=== PATIENT | male | born 1945 | race Caucasian/White ===

== ENCOUNTER 2021-11-23 10:32 | Emergency (ER) | payer MEDICARE, OTHER, SELFPAY ==
--- NOTE | ~2021-11-23 | XR_ITS ---
XR shoulder LT min 2V DATE: 11/23/2021 11:07 INDICATION: Fall. Left shoulder injury, pain TECHNIQUE: 4 views COMPARISON: None FINDINGS: No fracture or dislocation, periosteal reaction or bone destruction or abnormal soft tissue calcification of the left shoulder. IMPRESSION: No fracture or dislocation Reviewed, dictated and finalized at location A. IMPRESSION: No fracture or dislocation
--- NOTE | ~2021-11-23 | XR_ITS ---
XR hand RT min 3V DATE: 11/23/2021 11:07 INDICATION: Fall. Right hand injury, pain TECHNIQUE: 3 views COMPARISON: None FINDINGS: No fracture or dislocation, periosteal reaction or bone destruction. No erosive change or c hondrocalcinosis. IMPRESSION: No significant abnormality Reviewed, dictated and finalized at location A. IMPRESSION: No significant abnormality
--- NOTE | ~2021-11-23 | XR_ITS ---
XR wrist RT min 3V DATE: 11/23/2021 11:07 INDICATION: Fall. Right wrist and hand injury TECHNIQUE: 4 views COMPARISON: None FINDINGS: No recent fracture or dislocation, periosteal reaction or bone destruction, erosive change or chondrocalcinosis. Mild osteoarthritis at triscaphe joint. IMPRESSION: No detected fracture or dislocation Reviewed, dictated and finalized at location A.
[2021-11-23 10:28] VITALS: BP 162/88; PULSE 85; RESP 16; O2SAT 97
--- NOTE | 2021-11-23 10:37 | PC.NURSE ---
EDP at bedside to assess pt.
--- NOTE | 2021-11-23 10:49 | ED.GENADULT ---
HPI - General Adult General Chief complaint: Unspecified Stated complaint: mult c/o, chronic pain Time Seen by Provider: 11/23/21 10:45 Course Vital Signs Vital signs: Vital Signs Pulse Rate 85 11/23/21 10:28 Respiratory Rate 16 11/23/21 10:28 Blood Pressure 162/88 H 11/23/21 10:28 Pulse Oximetry 97 11/23/21 10:28 Pulse Rate 85 11/23/21 10:28 Respiratory Rate 16 11/23/21 10:28 Blood Pressure 162/88 H 11/23/21 10:28 Pulse Oximetry 97 11/23/21 10:28 Medical Decision Making Vital Signs Vital Signs: Vital Signs Pulse Rate 85 11/23/21 10:28 Respiratory Rate 16 11/23/21 10:28 Blood Pressure 162/88 H 11/23/21 10:28 Pulse Oximetry 97 11/23/21 10:28 Pulse Rate 85 11/23/21 10:28 Respiratory Rate 16 11/23/21 10:28 Blood Pressure 162/88 H 11/23/21 10:28 Pulse Oximetry 97 11/23/21 10:28 Discharge Plan Discharge Follow-up/Referrals: PHYSICIAN NOT ON STAFF,NONSTAFF [Primary Care Provider] -
[2021-11-23] MEDS: HYDROcodone/acetaminophen (*CRX) 5-325 MG TABLET 1 TAB PO (10:55)
--- NOTE | 2021-11-23 10:58 | PC.NURSE ---
Patient reports allergy to Percocet but reports that he can take [place] without complications and has been prescribed this medication in the past and it has treated his pain effectively.
--- NOTE | 2021-11-23 11:03 | PC.NURSE ---
Patient off unit to radiology.
[2021-11-23] MEDS: KETOROLAC 30 MG/ML VIAL (*BKC) IM (11:27)
--- NOTE | 2021-11-23 11:32 | ED.GENADULT ---
HPI - General Adult General Chief complaint: Unspecified Stated complaint: mult c/o, chronic pain Time Seen by Provider: 11/23/21 10:45 History of Present Illness HPI narrative: 76-year-old male who states that he had fallen in the garden about 4 weeks ago onto his outstretched right hand, and pain right hand/wrist, he did have a large bruise in his right lower extremity, he had gone an ultrasound to rule out blood clots in the leg at the time. He is also endorsing several weeks of pain in his left shoulder, denies any trauma, and he also has chronic lower back and hip pain for which he will be seeing a specialist in a week. No weakness or numbness or tingling, no issues with voiding or defecation. No saddle anesthesia. Related Data Allergies Allergy/AdvReac Type Severity Reaction Status Date / Time acetaminophen [From Percocet] Allergy Other Verified 11/23/21 10:56 oxycodone [From Percocet] Allergy Other Verified 11/23/21 10:56 Review of Systems Review of Systems: M/S: Pain in bilateral hips, left shoulder, right hand SKIN: No rash. NEURO: [No headache or focal numbness or weakness] [facility] Past Medical History Medical History (Updated 11/23/21 @ 11:36 by Liat Silverio MD) Arthritis Social History Social History (Updated 11/23/21 @ 11:34 by Liat Silverio MD) Smoking status: Never smoker Exam Narrative: EXAMINATION OF ORGAN SYSTEMS/BODY AREAS: Constitutional: Vital signs per nursing GENERAL:[No acute distress, non-toxic appearing.] HEAD: Normal with no signs of head trauma. EYES: EOMI, conjunctiva normal ENT: Hearing grossly intact LUNGS: Nonlabored breathing. HEART: [Regular rate and rhythm] EXT: Normal range of motion SKIN: [No rashes or lesions.] NEURO: [Alert and oriented x 3. No gross focal sensory or strength deficits.] PSYCH: Normal affect Course Vital Signs Vital signs: Vital Signs Pulse Rate 85 11/23/21 10:28 Respiratory Rate 16 11/23/21 10:28 Blood Pressure 162/88 H 11/23/21 10:28 Pulse Oximetry 97 11/23/21 10:28 Pulse Rate 85 11/23/21 10:28 Respiratory Rate 16 05/29/22 10:28 Blood Pressure 162/88 H 11/23/21 10:28 Pulse Oximetry 97 11/23/21 10:28 Medical Decision Making MDM Narrative Medical decision making narrative: 76-year-old male presenting with chronic joint pains, vital signs stable, exam shows full range of motion left shoulder but with pain on extension, and tenderness around the bicep tendon, right hand has full range of motion other than chronic deficits from prior tendon surgery, with some tenderness around the wrist and base of hand without snuffbox tenderness, good strength bilateral lower extremities, low suspicion for fractures, will obtain x-rays here to confirm, these are negative, patient already has follow-up with an orthopedic surgeon, he is stable for discharge home. Vital Signs Vital Signs: Vital Signs Pulse Rate 85 11/23/21 10:28 Respiratory Rate 16 11/23/21 10:28 Blood Pressure 162/88 H 11/23/21 10:28 Pulse Oximetry 97 11/23/21 10:28 Pulse Rate 85 11/23/21 10:28 Respiratory Rate 16 11/23/21 10:28 Blood Pressure 162/88 H 11/23/21 10:28 Pulse Oximetry 97 11/23/21 10:28 Discharge Plan Discharge Clinical Impression: Pain in wrist, Left shoulder pain Patient Disposition: Home, Self-Care Condition: Stable Instructions: Antibiotic Form, Tendinitis (ED), Arthritis (ED) Additional Instructions: You have no fractures seen on xray today. You can take over the counter tylenol/acetaminophen or ibuprofen/advil/motrin as needed for the pain; please follow up with your primary care doctor. Follow-up/Referrals: PHYSICIAN NOT ON STAFF,NONSTAFF [Primary Care Provider] -
== END 2021-11-23 12:36 | disposition home or self-care (01) ==
PROVIDERS: Emergency Provider Emergency Medicine
DX: M25.531 Pain in right wrist (principal); M25.512 Pain in left shoulder; W18.30XA Fall on same level, unspecified, initial encounter; Y92.007 Garden or yard of unspecified non-institutional (private) residence as the place of occurrence of the external cause
CPT/HCPCS: 73030; 73110; 73130; 96372; 99284; A9270; J1885

== ENCOUNTER 2022-01-16 13:16 | Emergency (ER) | payer MEDICARE, OTHER, SELFPAY ==
--- NOTE | ~2022-01-16 | XR_ITS ---
EXAMINATION: XR hand RT min 3V DATE: 01/16/2022 14:52 INDICATION: Right hand pain. TECHNIQUE: 3 views of right hand were obtained. COMPARISON: Right hand radiographs 11/23/2021 FINDINGS: Bone alignment is normal. No fracture. There is mild osteoarthritis of triscaphe joint, fir st carpometacarpal joint, first, second, and third metacarpophalangeal joints, and some of the interp halangeal joints. Again seen are loose bodies dorsal to the carpus. IMPRESSION: 1. Mild polyarticular osteoarthritis. 2. Loose bodies dorsal to the carpus. Reviewed, dictated and finalized at location A.
--- NOTE | ~2022-01-16 | CT_ITS ---
EXAMINATION: CT brain wo con DATE: 01/16/2022 14:49 INDICATION: Head injury. Fell a week ago. Patient on blood thinners. TECHNIQUE: Computed tomography (CT) of the head was performed without intravenous contrast. The mA wa s adjusted according to patient size. Iterative reconstruction technique was employed. Exam dose: 60 5.33 mGy-cm total exam DLP. COMPARISON: None FINDINGS: Bilateral carotid siphon internal carotid artery calcifications. There is nonspecific dimin ished attenuation cerebral white matter, likely due to chronic small vessel ischemic changes. Moderately prominent central and cortical cerebral atrophy. No intracranial mass lesion or hemorrhage or cerebrovascular accident. No midline shift or mass effec t. No subdural or epidural hematoma. No fracture or bone destruction of the cranial. Included paranasal sinuses and mastoid air cells are normally developed and aerated. IMPRESSION: No skull fracture or acute intracranial finding Reviewed, dictated and finalized at Location A. Reviewed, dictated and finalized at location B.
--- NOTE | ~2022-01-16 | XR_ITS ---
EXAMINATION: XR hand LT min 3V DATE: 01/16/2022 14:52 INDICATION: Left hand pain. Fall. TECHNIQUE: 3 views of left hand were obtained. COMPARISON: None. FINDINGS: Bone alignment is normal. No fracture. There is mild osteoarthritis of triscaphe joint, fir st carpometacarpal joint, first and second metacarpophalangeal joints, and some of the interphalangea l joints. IMPRESSION: 1. Mild polyarticular osteoarthritis. Reviewed, dictated and finalized at location A.
[2022-01-16 13:18] VITALS: BP 135/60; PULSE 85; RESP 16; TEMP 36.2; O2SAT 98
--- NOTE | 2022-01-16 15:10 | ED.FALL ---
HPI - Fall General Chief Complaint: Fall Stated Complaint: fall 1week ago Time Seen by Provider: 01/16/22 14:32 Source: patient and RN notes reviewed Mode of arrival: ambulatory Limitations: no limitations History of Present Illness HPI Narrative: This is a 76 year old male with history of atrial fibrillation on chronic anticoagulation who presents for evaluation of head injury. He states he was walking into a convenience store when he trip and he hit his head. This happened 1. 5 weeks ago. He denies having LOC, headache, nausea or vomiting. He reports mild bilateral hand pain from his pain. She denies any other injuries. He was not initially assessed after his fall so his PCP told him to come to ER for evaluation. Related Data Allergies Allergy/AdvReac Type Severity Reaction Status Date / Time acetaminophen [From Percocet] Allergy Other Verified 11/23/21 10:56 oxycodone [From Percocet] Allergy Other Verified 11/23/21 10:56 Review of Systems Review of Systems: All systems reviewed & are unremarkable except as noted in HPI and below Constitutional: Constitutional: Denies chills and Denies fatigue Eyes: Eyes: Denies change in vision ENT: Denies dizziness and Denies epistaxis Cardiovascular: Cardiovascular: Denies chest pain Respiratory: Respiratory: Denies chest congestion and Denies cough Gastrointestinal: Gastrointestinal: Denies nausea and Denies vomiting PMFSH Past Medical History Medical History (Updated 01/16/22 @ 15:18 by Chiquita Melchor MD) Arthritis Atrial fibrillation Back pain Hypertension Surgical History Surgical History (Updated 01/16/22 @ 15:15 by Chiquita Melchor MD) History of back surgery Social History Social History (Updated 11/23/21 @ 11:34 by Liat Silverio MD) Smoking status: Never smoker Exam Const: General: no acute distress and alert Nutritional Appearance: well nourished Orientation/consciousness: patient oriented x3 Limitations: no limitations HENMT: Head: normal to inspection Ears: external ears normal General nose exam: Normal external nose present Face and sinus: normal facial exam Mouth: Yes Normal oral and palatal mucosa present Eyes: Conjunctivae: conjunctivae normal Pupils: Equal, round and reactive pupils present EOM: EOMs intact bilaterally Neck: Neck: normal visual inspection Chest: Chest palpation & inspection: normal inspection of the chest Resp: Effort & Inspection: normal respiratory effort Auscultation: clear to auscultation bilaterally Cardio: Rate: regular rate Rhythm: regular rhythm Heart sounds: no murmurs GI: GI Palp: Yes Soft to palpation, Yes Tenderness to palpation present (GI), No Guarding due to palpation present (GI) and No Rigid due to palpation Auscultation: normal bowel sounds Skin: General skin exam: normal color Rashes: no rashes Wounds: no wounds Neuro: General: patient oriented x3, moves all extremities and CN's II-XI intact bilaterally Cranial nerves: Yes Nystagmus not present Speech: normal speech Extrem: General: normal to inspection Psych: Mental Status: mental status grossly normal Affect: normal affect Attitude: cooperative Course Reevaluation(s) Reevaluation #1: I Discussed with patient CT and xray findings. He has not other questions or concerns. Date: 01/16/22 Time: 15:17 Vital Signs Vital signs: Vital Signs Temperature 97.2 F L 01/16/22 13:18 Pulse Rate 85 01/16/22 13:18 Respiratory Rate 16 01/16/22 13:18 Blood Pressure 135/60 01/16/22 13:18 Pulse Oximetry 98 01/16/22 13:18 Oxygen Delivery Room Air 01/16/22 13:18 Temperature 97.2 F L 01/16/22 13:18 Pulse Rate 85 01/16/22 13:18 Respiratory Rate 16 01/16/22 13:18 Blood Pressure 135/60 01/16/22 13:18 Pulse Oximetry 98 01/16/22 13:18 Oxygen Delivery Room Air 01/16/22 13:18 MDM - Fall Imaging Data Radiologist's impression: ITS Impressions Head CT 01/16/22 14:50 IMPRESSI
== END 2022-01-16 15:25 | disposition home or self-care (01) ==
PROVIDERS: Emergency Provider General Practice
DX: S09.90XA Unspecified injury of head, initial encounter (principal); I48.91 Unspecified atrial fibrillation; I10 Essential (primary) hypertension; M19.90 Unspecified osteoarthritis, unspecified site; Z79.01 Long term (current) use of anticoagulants; M19.042 Primary osteoarthritis, left hand; M19.041 Primary osteoarthritis, right hand; M19.032 Primary osteoarthritis, left wrist; M19.031 Primary osteoarthritis, right wrist; M18.9 Osteoarthritis of first carpometacarpal joint, unspecified; W01.0XXA Fall on same level from slipping, tripping and stumbling without subsequent striking against object, initial encounter
CPT/HCPCS: 70450; 73130; 99284